=== PATIENT | female | born 1965 | race Hispanic/Latino ===

== ENCOUNTER 2024-01-22 18:17 | Emergency (ER) | payer OTHER ==
[~2024-01-22] VITALS: Ht 167.6 cm; Wt 72.8 kg
[2024-01-22 18:29] VITALS: PULSE 92; RESP 18; TEMP 98.7; O2SAT 98
[2024-01-22] MEDS ORDERED: DEXLANSOPRAZOLE30 MG (18:38)
[2024-01-22] MEDS ORDERED: DIOVAN80 MG PO (18:38)
[2024-01-22] MEDS ORDERED: AMLODIPINE BESY10 MG PO (18:38)
[2024-01-22] MEDS ORDERED: NASACORT16.9 ML (19:09)
== END 2024-01-22 19:15 | disposition home or self-care (01) ==
LOC: FSED 18:30
DX: R05.9 Cough, unspecified (principal); J06.9 Acute upper respiratory infection, unspecified; B34.9 Viral infection, unspecified; I10 Essential (primary) hypertension; K21.9 Gastro-esophageal reflux disease without esophagitis; Z11.52 Encounter for screening for COVID-19; F17.210 Nicotine dependence, cigarettes, uncomplicated
CPT/HCPCS: 0223U; 83518; 87400; 99283